=== PATIENT | female | born 1960 | race Caucasian/White ===

== ENCOUNTER → 2018-06-20 | Outpatient (CLI) | payer OTHER ==
[~2018-06-20] MED LIST: ADAL20KI SQ; CHOL500015 PO; ESOM40CA PO; FISH1CAP PO; FOLI-17 PO; METH2.5T PO; OMEP40CA6 PO; ROSU5TAB PO
== END | disposition home or self-care (01) ==
LOC: STAR 10:45
PROVIDERS: ATTEND Surgery
DX: Z01.818 Encounter for other preprocedural examination (principal); K80.10 Calculus of gallbladder with chronic cholecystitis without obstruction
CPT/HCPCS: 93005

== ENCOUNTER 2018-06-28 10:51 | Observation (INO) | payer OTHER ==
[2018-06-20 11:32] VITALS: BP 114/84
[~2018-06-28] VITALS: Ht 157.5 cm; Wt 101.8 kg
[2018-06-28] MEDS ORDERED: LACTATED RINGERS 1,000 ML IV SCH (11:34)
[2018-06-28] MEDS ORDERED: INDOCYANINE GREEN 25 MG VIAL IV ONE (12:00)
[2018-06-28] MEDS ORDERED: BUPIVACAINE/PF-EPI 0.5% 1:200K ONE (15:14)
[2018-06-28] MEDS ORDERED: FENTANYL PF 250 MCG/5ML ONE (15:17)
[2018-06-28] MEDS ORDERED: MIDAZOLAM 1 MG/ML, 2ML ONE (15:17)
[2018-06-28] MEDS ORDERED: LIDOCAINE 2% 100MG/5ML SYRINGE ONE (15:18)
[2018-06-28] MEDS ORDERED: ONDANSETRON 2MG/ML, 2ML ONE (15:18)
[2018-06-28] MEDS ORDERED: KETOROLAC 30 MG/1 ML ONE (15:18)
[2018-06-28] MEDS ORDERED: CEFOTETAN PMX 2GM/50ML 50 ML ONE (15:18)
[2018-06-28] MEDS ORDERED: DEXAMETHASONE 4 MG/ML, 1ML ONE (15:18)
[2018-06-28] MEDS ORDERED: PROPOFOL 10 MG/ML, 20ML ONE (15:18)
[2018-06-28] MEDS ORDERED: ROCURONIUM 10MG/ML,5ML ONE (15:18)
[2018-06-28] MEDS ORDERED: PHENYLEPHRINE 10 MG/ML ONE (15:24)
[2018-06-28] MEDS ORDERED: GLYCOPYRROLATE 0.2MG/1ML, 5ML ONE (15:24)
[2018-06-28] MEDS ORDERED: NEOSTIGMINE 1 MG/ML, 10ML ONE (15:24)
[2018-06-28] MEDS ORDERED: FENTANYL PF 100 MCG/2ML ONE ×2 (16:15→16:41)
[2018-06-28] MEDS ORDERED: MEPERIDINE/PF 25MG/0.5ML IVPush PRN (16:30)
[2018-06-28] MEDS ORDERED: PROMETHAZINE 25 MG/ML, 1ML IV PRN (16:30)
[2018-06-28] MEDS ORDERED: hydrALAzine 20 MG/ML, 1ML IV PRN (16:30)
[2018-06-28] MEDS ORDERED: ACETAMINOPHEN 325 MG TABLET PO PRN (16:30)
[2018-06-28] MEDS ORDERED: HALOPERIDOL 5 MG/ML IV PRN (16:30)
[2018-06-28] MEDS ORDERED: LABETALOL 5MG/ML, 20ML IV PRN (16:30)
[2018-06-28] MEDS ORDERED: HYDROmorphone 1 MG/ML, 1ML IV PRN (16:30)
[2018-06-28] MEDS ORDERED: OXYcodone 5 MG/5 ML ORAL.SOL UDC PO PRN (16:30)
[2018-06-28] MEDS ORDERED: OXYcodone 5 MG/5 ML ORAL.SOL UDC ONE (16:37)
[2018-06-28] MEDS: FENTANYL PF 100 MCG/2ML IV PRN ×2 (16:43→17:06)
[2018-06-28] MEDS ORDERED: DIPHENHYDRAMINE 50 MG/ML, 1ML ONE (16:55)
[2018-06-28] MEDS ORDERED: DIPHENHYDRAMINE 50 MG/ML, 1ML IVPush ONE (17:30)
[2018-06-28] MEDS ORDERED: ONDANSETRON 2MG/ML, 2ML IVPush PRN (18:30)
[2018-06-28] MEDS: LACTATED RINGERS 1,000 ML IV SCH (18:30)
[2018-06-28] MEDS ORDERED: HYDROmorphone 2 MG/ML, 1ML IV PRN (18:30)
[2018-06-28] MEDS ORDERED: KETOROLAC 30 MG/1 ML IV PRN (18:30)
[2018-06-28] MEDS ORDERED: DIPHENHYDRAMINE 50 MG/ML, 1ML IVPush PRN (18:30)
[2018-06-28] MEDS: OXYcodone 5 MG/5 ML ORAL.SOL UDC PO PRN (23:16)
[2018-06-29 00:02] VITALS: BP 116/74
[2018-06-29 04:00] VITALS: BP 121/76
[2018-06-29] MEDS: IBUPROFEN 600 MG TABLET PO SCH ×4 (04:46→21:34)
[2018-06-29] MEDS: OXYcodone 5 MG/5 ML ORAL.SOL UDC PO PRN (05:57)
[2018-06-29 06:51] VITALS: BP 118/78
[2018-06-29] MEDS: LACTATED RINGERS 1,000 ML IV SCH ×2 (07:00→19:22)
[2018-06-29 12:59] VITALS: BP 94/63
[2018-06-29 18:42] VITALS: BP 115/71
[2018-06-30 01:04] VITALS: BP 116/71
[2018-06-30] MEDS: IBUPROFEN 600 MG TABLET PO SCH ×2 (05:34→11:30)
[2018-06-30 06:37] VITALS: BP 110/76
[2018-06-30] MEDS: LACTATED RINGERS 1,000 ML IV SCH (09:51)
[2018-06-30 12:44] VITALS: BP 103/70
[2018-06-30 14:04] VITALS: BP 104/66
== END 2018-06-30 14:55 | disposition home or self-care (01) ==
LOC: OUT 10:51 → 4NOR 17:55 → OUT 22:14 → 4NOR 22:14 → DCLOUNGE 06-30 14:44
PROVIDERS: ADMIT Surgery; ATTEND Surgery
DX: K80.10 Calculus of gallbladder with chronic cholecystitis without obstruction (principal); R09.02 Hypoxemia; K66.8 Other specified disorders of peritoneum; E78.5 Hyperlipidemia, unspecified; M19.90 Unspecified osteoarthritis, unspecified site; G47.33 Obstructive sleep apnea (adult) (pediatric); K21.9 Gastro-esophageal reflux disease without esophagitis; Z88.8 Allergy status to other drugs, medicaments and biological substances; Z79.899 Other long term (current) drug therapy
CPT/HCPCS: 47562; J1100; J1200; J1885; J2250; J2370; J2405; J2704; J2710; J3010; J3490; J7120; S2900; 88304; G0378

== ENCOUNTER → 2018-07-19 | Outpatient (CLI) | payer OTHER ==
[~2018-07-19] MED LIST changes: +OMNIPAQUE 350 MG/ML, 100ML BOTTLE ONE
== END | disposition home or self-care (01) ==
LOC: RAD 17:04
PROVIDERS: ATTEND Family Medicine
DX: J98.11 Atelectasis (principal); R07.9 Chest pain, unspecified
CPT/HCPCS: 71275; Q9967